=== PATIENT | female | born 1945 | race Caucasian/White ===

== ENCOUNTER → 2016-10-28 | Outpatient (CLI) | payer OTHER ==
[~2016-10-28] MED LIST: CENTRUM COMPLE1 EACH PO; CLONAZEPAM0.5 MG PO; VITAMIN D31000 UNI2 PO
[2016-10-28 11:31] VITALS: BP 124/64
== END | disposition home or self-care (01) ==
LOC: IVINF 10-27 15:00
DX: M81.0 Age-related osteoporosis without current pathological fracture (principal)
CPT/HCPCS: 96365; J3489